=== PATIENT | male | born 1955 ===

== ENCOUNTER 2017-09-14 05:41 | Day surgery (SDC) | payer BC ==
[2017-09-14] VITALS (8 sets, daily range): BP systolic 134–166; BP diastolic 85–94
[~2017-09-14] VITALS: Ht 175.3 cm; Wt 120.2 kg
[2017-09-14] MEDS ORDERED: METOPROLOL TART50 M1 ORAL (06:15)
[2017-09-14] MEDS ORDERED: ATORVASTATIN CA10 MG ORAL (06:15)
[2017-09-14] MEDS ORDERED: LOSARTAN POTASS50 MG ORAL (06:15)
[2017-09-14] MEDS ORDERED: HYDROCHLOROTHIA25 MG ORAL (06:15)
--- NOTE | 2017-09-14 06:28 | Anethesia Preoperative Eval ---
Anesthesia Pre-op PMH/ROS General Date of Evaluation: Sep 14, 2017 Time of Evaluation: 06:25 Anesthesiologist: meagan ASA Score: ASA 3 Mallampati Score Class I : Soft palate, uvula, fauces, pillars visible Class II: Soft palate, uvula, fauces visible Class III: Soft palate, base of uvula visible Class IV: Only hard plate visible Mallampati Classification: Class II Surgeon: karina Diagnosis: abdominal pain Surgical Procedure: colonoscopy Anesthesia History: none Social History: smoking - former smoker Family History: no anesthesia problems Allergies: Coded Allergies: No Known Allergies (Unverified , 09/14/17) Medications: see eMAR Past Medical History Cardiovascular: Reports: HTN, other - hypercholesterolemia Hematology/Immune: Reports: other - cancer, lester, Musculoskeletal/Integumentary: Reports: OA Other: obesity Anesthesia Pre-op Phys. Exam Physician Exam Last Vital Signs Date Time Temp Pulse Resp B/P (MAP) Pulse Ox O2 Delivery O2 Flow Rate FiO2 09/14/17 06:16 97.9 68 20 147/87 98 Room Air Constitutional: NAD Neurologic: CN 2-12 intact Cardiovascular: RRR Respiratory: CTA Gastrointestinal: S/NT/ND Airway Exam Mallampati Score: Class II MO: full Neck: supple TMD: 2fb ROM: limited Anesthesia Pre-op A/P Risk Assessment & Plan Assessment: asa3 Plan: mac Status Change Before Surgery: No Pre-Antibiotics Drug: NI Lott Sep 14, 2017 06:28
[2017-09-14] MEDS ORDERED: fentaNYL 100 mcg/2 mL IV PRN (06:30)
[2017-09-14] MEDS ORDERED: Atropine Inj 1mg/10ml Syr IV PRN (06:30)
[2017-09-14] MEDS ORDERED: DiphenhydrAMINE 50mg/ml Inj IVP PRN (06:30)
[2017-09-14] MEDS ORDERED: Midazolam 2mg/2ml Inj IVP PRN (06:30)
--- NOTE | 2017-09-14 06:54 | Pre-Procedure Note/Attestation ---
Pre-Procedure Note/Attestation Complete Prior to Procedure Planned Procedure: not applicable Procedure Narrative: Colonoscopy, possible biopsy, polypectomy, hemostasis, submucosal injection Indications for Procedure Pre-Operative Diagnosis: cancer screening Attestation I attest that I discussed the nature of the procedure; its benefits; risks and complications; and alternatives (and the risks and benefits of such alternatives ), prior to the procedure, with the patient (or the patient's legal billing representative). I attest that, if there was a reasonable possibility of needing a blood transfusion, the patient (or the patient's legal billing representative) was given the [facility] standardized written summary, pursuant to the [employer] [place] Blood Safety Act ([place] Health and Safety Code # 1645, as amended). I attest that I re-evaluated the patient just prior to the surgery and that there has been no change in the patient's H&P, except as documented below: AMILCAR SÁNCHEZ Sep 14, 2017 06:54
[2017-09-14] MEDS ORDERED: Propofol 200mg/20ml IV ONE (07:00)
[2017-09-14] MEDS ORDERED: Lidocaine 1% MPF 10mg/ml 5ml ONE (07:00)
[2017-09-14] MEDS ORDERED: LR 1000ml ONE (07:00)
--- NOTE | 2017-09-14 07:26 | Endoscopy Procedure Note ---
Endoscopy Procedure Note Procedures Performed: colonoscopy Operative Findings/Diagnosis: diverticulosis Specimen: none Pt Tolerated Procedure Well: Yes Estimated Blood Loss: none Anesthesiologist: Ivette Clark MD Anesthesia: moderate sedation Medication Given: see anesthesia record Implant(s) used?: No 50 yrs or older w/o bx or poly: Yes 10yrs. F/U not recommended: No If not recommended, why?: AMILCAR SÁNCHEZ Sep 14, 2017 07:26
--- NOTE | 2017-09-14 08:20 | Immediate Post-Op Evaluation ---
Immediate Post-Op Evalulation Immediate Post-Op Evalulation Procedure: colonoscopy Date of Evaluation: Sep 14, 2017 Time of Evaluation: 07:44 IV Fluids: 500ml lr Blood Products: none Estimated Blood Loss: negligible Blood Pressure Systolic: 134 Blood Pressure Diastolic: 70 Pulse Rate: 61 Respiratory Rate: 18 O2 Sat by Pulse Oximetry: 99 Temperature (Fahrenheit): 97.0 Pain Score (1-10): 0 Nausea: No Vomiting: No Complications none Patient Status: awake, reacts, patent Hydration Status: adequate Drug: NI Lott Sep 14, 2017 08:20
--- NOTE | 2017-09-14 08:21 | 48 Hour Post Anesthesia Eval ---
Post Anesthesia Evaluation Procedure: colonoscopy Date of Evaluation: Sep 14, 2017 Time of Evaluation: 07:46 Blood Pressure Systolic: 160 0: 90 Pulse Rate: 61 Respiratory Rate: 18 Temperature (Fahrenheit): 97.0 O2 Sat by Pulse Oximetry: 97 Airway: patent Nausea: No Vomiting: No Pain Intensity: 0 Hydration Status: adequate Cardiopulmonary Status: stable Mental Status/LOC: patient returned to baseline Post-Anesthesia Complications: none Follow-up care needed: N/A NI MOSQUEDA Sep 14, 2017 08:21
--- NOTE | 2017-09-14 15:30 | Procedure Note ---
DATE OF PROCEDURE: 09/14/2017 PREPROCEDURE DIAGNOSIS: Cancer screening. POSTPROCEDURE DIAGNOSIS: Diverticulosis, mild internal hemorrhoids. PROCEDURE: Colonoscopy. SURGEON: Talita Jarvis M.D. ANESTHESIOLOGIST: Ivette Chadwick M.D. ANESTHESIA: Propofol sedation. INDICATION FOR PROCEDURE: The patient is a 62-year-old, male, who came into my office requesting a followup colonoscopy. The patient's last colonoscopy was in 2007, which was negative per the patient. In light of the patient's age, it is determined at this time to proceed with followup colonoscopy. DESCRIPTION OF PROCEDURE: Upon consent of the patient, the patient was brought to the procedure room and placed in left lateral decubitus position. Once adequate sedation had been established with propofol drip, digital rectal exam was performed, which showed some moderate internal hemorrhoids. An Olympus colonoscope was advanced to the anus and into the rectum. The descending colon, splenic flexure, transverse colon, hepatic flexure, and ascending colon were visualized. The cecum was easily reached, and the ileocecal valve and appendiceal orifice were identified. The patient's prep was noted to be fair. The colonoscope was slowly withdrawn. There was noted to be no polyps, masses or colitis. The patient was noted to have wide-based extensive sigmoid diverticulosis and some scattered diverticula throughout the colon all the way up to the cecum. The sigmoid colon was mildly thickened, but the diverticula were not acutely inflamed. Upon reaching the rectum, the colonoscope was retroflexed and there was noted to be mild internal hemorrhoids. The scope was straightened, air was evacuated from the rectum and the colonoscope was removed. The patient was awakened from anesthesia and brought to the postanesthesia recovery in stable condition. There were no complications. IMPRESSION: Diverticulosis, mild internal hemorrhoids. PLAN: Repeat colonoscopy in 5 years. Continue high-fiber diet. Yearly followup. Talita Jarvis M.D. DR: ILIANA JOB#: [id number] CC: Valencia Huerta M.D.
== END 2017-09-14 08:30 | disposition home or self-care (01) ==
LOC: GAS 05:41
DX: Z12.11 Encounter for screening for malignant neoplasm of colon (principal); K57.90 Diverticulosis of intestine, part unspecified, without perforation or abscess without bleeding; K64.8 Other hemorrhoids; I10 Essential (primary) hypertension; E78.00 Pure hypercholesterolemia, unspecified; G47.33 Obstructive sleep apnea (adult) (pediatric); M19.90 Unspecified osteoarthritis, unspecified site; Z87.891 Personal history of nicotine dependence; Z85.9 Personal history of malignant neoplasm, unspecified
CPT/HCPCS: 45378; J2704; J7120; 94003; 94150